=== PATIENT | male | born 1965 | race Caucasian/White ===

== ENCOUNTER 2022-08-21 18:14 | Emergency (ER) | payer OTHER ==
[~2022-08-21] VITALS: Ht 182.9 cm; Wt 79.8 kg
[2022-08-22] MEDS ORDERED: CEPHALEXIN500 M1 PO (00:27)
== END 2022-08-22 00:30 | disposition home or self-care (01) ==
LOC: ER 18:14
DX: S01.511A Laceration without foreign body of lip, initial encounter (principal); W05.2XXA Fall from non-moving motorized mobility scooter, initial encounter; Y93.9 Activity, unspecified; Y92.410 Unspecified street and highway as the place of occurrence of the external cause; Y99.9 Unspecified external cause status